=== PATIENT | female | born 1950 | race Caucasian/White ===

== ENCOUNTER 2017-11-28 18:28 | Inpatient (IN) | payer OTHER, BC ==
[~2017-11-28] VITALS: Ht 182.9 cm; Wt 111.1 kg
[2017-11-28 18:29] VITALS: BP 112/59
[2017-11-28] MEDS ORDERED: ASPIR 8181 MG PO (18:46)
[2017-11-28] MEDS ORDERED: EFFEXOR XR37.5 MG PO (18:47)
[2017-11-28] MEDS ORDERED: BLOOD PRESSURE (18:47)
[2017-11-28 20:59] VITALS: BP 143/73
[2017-11-28 21:20] LABS: URINE BILIRUBIN 1+ (Negative); URINE BLOOD NEGATIVE (Negative); URINE CLARITY CLEAR; URINE COLOR YELLOW; URINE GLUCOSE-RANDOM* NEGATIVE (Negative); URINE KETONES TRACE (Negative); URINE LEUKOCYTES-REFLEX NEGATIVE (Negative); URINE NITRITE-REFLEX NEGATIVE (Negative); URINE PROTEIN (DIPSTICK) 1+ (Negative); URINE UROBILINOGEN 0.2 E.U./dl (0.2-1.0)
[2017-11-28 21:28] LABS: CRYSTALS None Seen /LPF (None Seen); ICTOTEST (BILI CONFIRMATORY) Positive (Negative); MUCUS 0-3 Light strn/LPF (None Seen); SQUAMOUS 4-10 Moderate /LPF (0-3); URINE RBC 0-2 Rare /HPF (0-2)
[2017-11-28 21:29] LABS: AMORPHOUS URATES Few /LPF (None Seen); HYALINE CASTS 0-3 Few /LPF (None Seen); TRANSITIONAL EPITHEL CELL 0-3 Few /LPF (None Seen)
[2017-11-28 21:39] LABS: ABSOLUTE NEUTROPHILS 9.8 thou/uL (1.4-8.2); BASOPHILS 0.7 % (0.0-2.0); HEMATOCRIT 51.1 % (37.0-47.0); HEMOGLOBIN 17.3 gm/dL (12.0-15.0); LYMPHOCYTES 23.2 % (24.0-44.0); MCH 27.5 pg (26.0-34.0); MCHC 33.9 g/dL (28.0-37.0); MCV 81.2 fL (80.0-100.0); MONOCYTES 4.7 % (1.0-8.0); PLATELET COUNT 336 thou/uL (150-400); POLYS 70.4 % (36.0-66.0); RBC 6.29 mil/uL (4.20-5.00); RDW 13.6 % (10.5-14.5); WBC 13.9 thou/uL (4.0-11.0)
[2017-11-28 21:49] LABS: CALCIUM 9.6 mg/dL (8.5-10.1); POTASSIUM 3.4 mmol/L (3.5-5.1)
[2017-11-28 21:55] LABS: ALBUMIN 3.9 g/dL (3.4-5.0); TOTAL BILIRUBIN 0.5 mg/dL (<0.1-1.0); TOTAL PROTEIN 8.1 g/dL (6.4-8.2)
[2017-11-28 22:05] VITALS: BP 143/73
[2017-11-29] MEDS ORDERED: ZOCOR20 MG PO (00:10)
[2017-11-29 00:11] VITALS: BP 133/65
[2017-11-29] MEDS ORDERED: COZAAR 50 MG TA50 M2 PO (00:11)
[2017-11-29] MEDS ORDERED: AMARYL4 MG PO (00:12)
[2017-11-29] MEDS ORDERED: CYMBALTA30 MG PO (00:12)
[2017-11-29] MEDS ORDERED: OXYCODONE HCL15 MG PO (00:13)
[2017-11-29] MEDS ORDERED: HYDROCODONE-AP1 EAC6 PO (00:13)
[2017-11-29] MEDS ORDERED: XANAX 0.5 MG0.5 MG PO (00:14)
[2017-11-29 01:00] VITALS: BP 158/47
[2017-11-29 04:34] VITALS: BP 141/55
[2017-11-29 06:23] LABS: HEMATOCRIT 42.3 % (37.0-47.0); MCH 27.2 pg (26.0-34.0); MCHC 33.5 g/dL (28.0-37.0); MCV 81.1 fL (80.0-100.0); RBC 5.21 mil/uL (4.20-5.00); RDW 13.1 % (10.5-14.5); WBC 10.6 thou/uL (4.0-11.0)
[2017-11-29 06:31] LABS: HEMOGLOBIN 14.2 gm/dL (12.0-15.0)
[2017-11-29 06:37] LABS: CREATININE 0.9 mg/dL (0.6-1.0)
[2017-11-29 08:00] VITALS: BP 136/67
[2017-11-29 19:21] VITALS: BP 132/61
[2017-11-30 03:26] VITALS: BP 149/90
[2017-11-30 04:01] LABS: ALBUMIN 2.9 g/dL (3.4-5.0); CALCIUM 8.3 mg/dL (8.5-10.1); CREATININE 0.8 mg/dL (0.6-1.0); MAGNESIUM 1.6 mg/dL (1.8-2.4); PHOSPHORUS 3.6 mg/dL (2.5-4.9); TOTAL BILIRUBIN 0.4 mg/dL (<0.1-1.0); TOTAL PROTEIN 6.4 g/dL (6.4-8.2)
[2017-11-30 05:31] LABS: % SATURATION 14 % (20-39); IRON 34 ug/dL (50-170); TIBC 240 ug/dL (250-450)
[2017-11-30 06:03] LABS: TSH 3.628 uIU/mL (0.358-3.740)
[2017-11-30 07:35] VITALS: BP 139/63
[2017-11-30] MEDS ORDERED: ENOXAPARIN40 MG/0.1 SUBQ (14:40)
[2017-11-30] MEDS ORDERED: ROCEPHIN 11 GM/1001 IV (14:41)
[2017-11-30 16:52] VITALS: BP 112/61
== END 2017-11-30 17:21 | DRG 872 ==
LOC: ER 18:28 → EROBS 21:51 → 4W 21:51 → ENTRNSPT 11-30 16:21 → 4W 11-30 17:21
PROVIDERS: Nurse Practitioner Family; Physician Assistant; Registered Nurse
DX: A41.9 Sepsis, unspecified organism (principal); N39.0 Urinary tract infection, site not specified; F11.20 Opioid dependence, uncomplicated; I69.954 Hemiplegia and hemiparesis following unspecified cerebrovascular disease affecting left non-dominant side; F03.91 Unspecified dementia, unspecified severity, with behavioral disturbance; F05 Delirium due to known physiological condition; D72.829 Elevated white blood cell count, unspecified; G89.29 Other chronic pain; M54.9 Dorsalgia, unspecified; I10 Essential (primary) hypertension; S82.301A Unspecified fracture of lower end of right tibia, initial encounter for closed fracture; M85.80 Other specified disorders of bone density and structure, unspecified site; J44.9 Chronic obstructive pulmonary disease, unspecified; K74.60 Unspecified cirrhosis of liver; F31.9 Bipolar disorder, unspecified; E78.5 Hyperlipidemia, unspecified; E11.9 Type 2 diabetes mellitus without complications; F41.9 Anxiety disorder, unspecified; F17.210 Nicotine dependence, cigarettes, uncomplicated; W18.39XA Other fall on same level, initial encounter; Y93.89 Activity, other specified; Y92.89 Other specified places as the place of occurrence of the external cause; Y99.8 Other external cause status; Z79.82 Long term (current) use of aspirin; Z79.899 Other long term (current) drug therapy
CPT/HCPCS: 10040